=== PATIENT | male | born 1950 | race Caucasian/White ===

== ENCOUNTER 2018-07-11 11:02 | Inpatient (IN) | payer OTHER, MEDICARE ==
[~2018-07-11] VITALS: Ht 175.3 cm; Wt 90.7 kg
[2018-07-11 11:04] VITALS: BP 100/66
[2018-07-11 11:34] LABS: HEMATOCRIT 40.7 % (42.0-52.0); HEMOGLOBIN 13.6 gm/dL (14.0-18.0); MCH 30.8 pg (26.0-34.0); MCHC 33.5 g/dL (28.0-37.0); MCV 92.1 fL (80.0-100.0); PLATELET COUNT 124 thou/uL (150-400); RBC 4.41 mil/uL (4.50-6.00)
[2018-07-11 11:43] LABS: ANION GAP 10 mmol/L (7-16); BUN 8 mg/dL (7-18); CALCIUM 8.8 mg/dL (8.5-10.1); CHLORIDE 109 mmol/L (98-107); CO2 26 mmol/L (21-32); CREATININE 1.1 mg/dL (0.7-1.3); GLUCOSE 109 mg/dL (74-106); SODIUM 145 mmol/L (136-145)
[2018-07-11 11:52] LABS: ALBUMIN 2.6 g/dL (3.4-5.0); SGOT 19 U/L (15-37); SGPT 17 U/L (30-65); TOTAL BILIRUBIN 0.6 mg/dL (<0.1-1.0); TOTAL PROTEIN 6.1 g/dL (6.4-8.2); TROPONIN-I <0.06 ng/mL (<0.06)
[2018-07-11 12:19] LABS: URINE BILIRUBIN NEGATIVE (Negative); URINE BLOOD NEGATIVE (Negative); URINE CLARITY CLEAR; URINE COLOR YELLOW; URINE GLUCOSE-RANDOM* NEGATIVE (Negative); URINE KETONES NEGATIVE (Negative); URINE LEUKOCYTES-REFLEX NEGATIVE (Negative); URINE NITRITE-REFLEX NEGATIVE (Negative); URINE PROTEIN (DIPSTICK) NEGATIVE (Negative)
[2018-07-11 12:20] LABS: ABSOLUTE NEUTROPHILS 4.3 thou/uL (1.4-8.2); ANISOCYTOSIS 1+; MYELOCYTES 1 %
[2018-07-11 12:22] LABS: AMP/METHAMP Negative (Negative); BARBITURATES Negative (Negative); BENZODIAZEPINES POSITIVE (Negative); COCAINE Negative (Negative); METHADONE Negative (Negative); OPIATES Negative (Negative); PCP Negative (Negative)
[2018-07-11 14:30] VITALS: BP 124/69
[2018-07-11] MEDS ORDERED: ATIVAN0.5 MG PO (15:15)
[2018-07-11] MEDS ORDERED: CELEXA40 MG PO (15:16)
[2018-07-11] MEDS ORDERED: DIVALPROEX SOD250 M3 PO (15:16)
[2018-07-11] MEDS ORDERED: IMODIUM A-D2 MG PO (15:17)
[2018-07-11] MEDS ORDERED: NAMENDA 10 MG T10 MG PO (15:17)
[2018-07-11] MEDS ORDERED: RISPERDAL0.5 MG PO (15:18)
[2018-07-11] MEDS ORDERED: RIVASTIGMINE1 EAC1 TRANSDERM (15:19)
[2018-07-11 16:37] VITALS: BP 139/78
--- NOTE | 2018-07-11 17:18 | EKG ---
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 : 1950 Requested By: Hilary Deleon Order Number: [id number] MD: Ankit Hernandes Measurements Intervals [place] Rate: 78 P: 70 PA: 124 QRS: 22 QRSD: 99 T: 94 QT: 405 QTc: 462 Interpretive Statements Sinus rhythm Nonspecific ST and T wave abnormality No previous ECG available for comparison Electronically Signed On 07-11-2018 17:18:27 CDT by Ankit Hernandes [email or web address] ��������������������������������������������� <ELECTRONICALLY SIGNED> ���������������������������������������� By: Ankit Hernandes MD, [facility] ��������������������������������������������� 07/11/18 1718 D: 03/1226 26 Ankit Hernandes MD, FACC /EPI
--- NOTE | 2018-07-11 17:20 | EKG ---
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 CALLOWAY : 1950 Requested By: Jabier Bland Order Number: [id number] MD: Ankit Hernandes Measurements Intervals [place] Rate: 123 P: 48 MI: 112 QRS: 20 QRSD: 101 T: 64 QT: 330 QTc: 472 Interpretive Statements Sinus tachycardia Low voltage, precordial leads Nonspecific ST segment abnormality No previous ECG available for comparison Electronically Signed On 07-11-2018 17:20:18 CDT by Ankit Hernandes [email or web address] ��������������������������������������������� <ELECTRONICALLY SIGNED> ���������������������������������������� By: Ankit Hernandes MD, [facility] ��������������������������������������������� 07/11/18 1720 49 49 Ankit Hernandes MD, FAC /EPI
--- NOTE | 2018-07-11 18:05 | NUR ---
1430: Admitted to room 519-B via w/c from [facility], alert, oriented to name only, impulsive with actions and decisions. Admission assessment completed, VS= 97.3-90-20, 139/78, O2SAT 96% on R/A, lung walter CTA bilat., no cough noted, abd round/soft, BS active x4 quads, incont. of B&B, wears pull-up, BSC provided. Pt. uncooperative with staff.
[2018-07-11 19:57] VITALS: BP 126/81
--- NOTE | 2018-07-11 22:11 | NUR ---
ASSUMED CARE OF THE PT AT 1915PM. ALERT ET CONFUSED AT THIS TIME. ATTEMPTING TO GET OUT OF BED FREQUENTLY, VERY IMPULSIVE. NEEDS ASSISTANCE WHEN GOING TO THE BSC. TOOK HIS HS MEDICATIONS WITHOUT ANY DIFFICULTY. CALLED THE SINGLE CORNER CUTTER FRENCH TUTOR, WHO ORDERED A 1;1 FOR THE PT, FOR HIS SAFETY, HE IS SO IMPULSIVE.
--- NOTE | 2018-07-11 23:39 | NUR ---
THE PT HAS BEEN CALLING STAFF, "BITCHES." SCREAMING AT STAFF, "LEAVE ME ALONE." REMAINS ON 1:1 FOR HIS SAFETY.
--- NOTE | 2018-07-12 02:45 | NUR ---
THE PT HAS NOT BEEN SLEEPING THIS SHIFT. RESP., EVEN, AND UNLABORED. REMAINS ON A 1;1 FOR HIS SAFETY.
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
--- NOTE | 2018-07-12 15:42 | NUR ---
PATIENT REMAINED ON 1:1 FOR SAFETY AND AGITATION. SLEPT ALL MORNING AFTER SHIFT CHANGE. NURSE PRACTIONER VISITED WITH PATIENT CLOSE TO 1300. AT THIS TIME HE WAS AWOKEN AND ESCORTED TO DINING AREA FOR LUNCH. PATIENT SLEPT THROUGH BREAKFAST AND UNABLE TO AROUSE FOR MORNING MEDICATIONS. ONCE HE AWOKE HE WAS CALM, RESPONSIVE TO QUESTIONS, REDIRECTABLE AND COMPLIANT WITH MEDICATIONS DISPENSED WITH LUNCH. PATIENT COOPERATIVE AND AGREEABLE. AFFECT FLAT AND MOOD SERIOUS. BRUISING ON RIGHT WRIST NOTED. PATIENT STATED HAPPENED PRIOR TO ADMISSION TO [place]. HE SHOWN NO AGITATION OR RESISTANCE SINCE AWAKENING.
[2018-07-12 18:16] VITALS: BP 131/87
[2018-07-12 20:00] VITALS: BP 133/92
--- NOTE | 2018-07-13 03:39 | NUR ---
NOTED TO PACING, RESTLESS AND INCREASINGLY DIFFICULT TO REDIRECT AT SHIFT CHANGE (APPROX 1914)-PER REPORT OF 1;1 STAFF THAT HAD BEEN WITH HIM SINCE THIS AM-HALDOL 5MG PO OFFERED -TRISTEN REFUSED STATING "I DON'T LIKE TO TAKE PILLS" DID AGREE TO TAKE SHOT AND HALDOL 5MG GIVEN IM IN RIGHT DELTOID AT 1930-COOPERATIVE WITH THIS-AND WENT TO ROOM APPROX 20 MINUTES LATER-UP ON SIDE OF BED WITH 1;1 STAFF AT BEDSIDE UNTIL APPROX 2229 WHEN HE APPEARED TO FALL ASLEEP- LABILE MOOD- INITALLY WAS PLEASANT-MILDLY FLIRTATIOUS WHEN VS TAKEN-BUT LATER WHEN APPROACHED FOR ASSESSMENTS WAS ARGUMENTATIVE,USING PROFANITY AND INSULTING TO STAFF. DENIES A/V HALLUCINTATIONS-APPEARS HYPERVIGILANT AND GUARDED IN MILLEU BUT NO DELUSIONAL/PARANOID THOUGHTS VERBALIZED IN CONVERSATION 9
--- NOTE | 2018-07-13 05:52 | NUR ---
NO BOWEL MOVEMENTS THIS SHIFT 7A-7PM. DENIES ABDOMINAL PAIN/CRAMPING OR DISCOMFORT-GOOD APPETITE-TAKE PO FLUIDS WELL-VS 133/92-P-96 R-16 AFEBRILE TEMP 98.4
[2018-07-13 07:30] VITALS: BP 120/74
--- NOTE | 2018-07-13 09:09 | NUR ---
0730: Care assumed, report rec from noc shift. Assist with a.m. care x1 staff, pt cooperative with staff. Ambulatory to DR for a.m. meal, gait steady, follows direction, feeds self, appetite good, consumed 100% of brk. Takes meds whole w/o difficulty. No stools reported at this time.
--- NOTE | 2018-07-13 11:47 | EKG ---
[address] [address] ELECTROCARDIOGRAM REPORT Name: TRISTEN BRADY Room #: 519B-B ADM IN M.R.#: [id number] ������������������ Admission: 07/11/18 ������������������ Attend Phys: Jabier Bland DO Discharge: ������������������ Date of : 52 Report #: [id number] ����������������������������������������������������������������� [id number] THIS REPORT FOR: //name// [facility] Test Date: 2018-07-12 Test Time: 14:06:22 Pat Name: TRISTEN BRADY Department: Room: 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 Aide Teacher: CHERYL : 1950 Requested By: Alejandra Colon Order Number: [id number] MD: Ankit Hernandes Measurements Intervals [place] Rate: 92 P: 67 NJ: 113 QRS: 14 QRSD: 95 T: 84 QT: 345 QTc: 427 Interpretive Statements Sinus arrhythmia Borderline short [place] interval Low voltage, precordial leads Borderline repolarization abnormality Compared to ECG 07/11/2018 16:50:17 Sinus tachycardia no longer present Electronically Signed On 07-13-2018 11:47:22 CDT by Ankit Hernandes [email or web address] ��������������������������������������������� <ELECTRONICALLY SIGNED> ���������������������������������������� By: Ankit Hernandes MD, [facility] ��������������������������������������������� 07/13/18 1147 1406 1406 Ankit Hernandes MD, [facility] /EPI
[2018-07-13 20:00] VITALS: BP 155/90
--- NOTE | 2018-07-13 23:25 | NUR ---
ASSUMED CARE OF THE PT AT 1915PM. THE PT HAS BEEN WALKING UP AND DOWN THE HALLWAY THIS PM. ALERT TO PERSON. DENIES ANXIETY, DEPRESSION, SI/HI, A/V HALLUCINATIONS. WALKS WITH A SLOW STEADY GAIT. REMAINS ON 12 HOUR CHECKS FOR HIS SAFETY.
--- NOTE | 2018-07-14 01:38 | NUR ---
LATE ENTRY FOR 07-13-18 [id number] POSITIVE RESULTS CALLED TO CLINICIAN LITIGATOR RJEI BOWLES UNDERWATER TRAPPER AT 1930 BY PREVIOUS SHIFT RN Asia AL-ORDERS RECEIVED TO PLACE PT ON CONTACT PRECAUTIONS AND ISOLATION CART ORDER PLACED-NURSING DISTRIBUTION OPERATIONS SUPERVISOR NOTIFIED. MONIAK RAMSAY UNDERWATER TRAPPER CONTACTED WITH POSITIVE C-DIFF RESULTS AT APPROX. 2200 AND INDICATED SHE WOULD PLACE ORDERS FOR MEDS FOR TREATMENT- EXPRESSED CONCERN RE ABILITY TO MANAGE C-DIFF PT ON UNIT AND INDICATED POSSIBLE TRANSFER TO MEDICAL SURGICAL FLOOR-STATED SHE WOULD CONTACT DR. GARCIA TO DISCUSS THIS OPTION. APPROX 45INUTES THIS RN RECEIVED CALL FROM Summer RAMSAY NP INDICATING SHE WAS UNABLE TO REACH DR. GARCIA AND SPOKE WITH James BOWLES NP WHO WAS COVERING UNIT THIS WEEKEND AND PT WOULD NOT BE TRANSFERED AT THIS TIME. ABILITY TO MAINTAIN CONTACT PRECAUTIONS ON UNIT
--- NOTE | 2018-07-14 04:29 | NUR ---
THE PT HAS BEEN SLEEPING FOR THE LAST FEW HOURS, TOOK HIS MIDNIGHT DOSE OF VANCOMYCIN WITHOUT ANY DIFFICULTY. WILL CONTINUE TO MONITOR.
--- NOTE | 2018-07-14 04:58 | NUR ---
THE PT SLEPT 5.2 HOURS LAST NIGHT.
--- NOTE | 2018-07-14 10:01 | NUR ---
[id number]: Report rec. from [facility] shift, care assumed. Remains on contact isolation for C-Diff, caution sign present before entry into room, isolation cart present on unit with education provided to staff regarding isolation. Up in room with assist of 1 staff, gait fairly steady, walker present for assist. Ambulatory to DR for a.m. meal, consumed 100% of meal, takes meds w/o difficulty. Mood happy, calm, cooperative with staff and other pts. Participates in group activity in common area.
[2018-07-14 19:30] VITALS: BP 140/86
[2018-07-15 01:46] VITALS: BP 140/86
[2018-07-15 04:05] LABS: CALCIUM 8.5 mg/dL (8.5-10.1); MAGNESIUM 1.7 mg/dL (1.8-2.4); POTASSIUM 3.2 mmol/L (3.5-5.1)
--- NOTE | 2018-07-15 04:07 | NUR ---
RESTLESS AND IRRITABLE EARLY IN SHIFT. UNABLE TO SIT STILL. TOOK HS MEDS WITH ASSISTANCE. UNSTEADY AMBULATION, AND REQUIRES ASSIST. RESTLESS IN BED, AND ATTEMPTING TO CLIMB OVER BED RAILS. UNABLE TO PROCESS AND REMEMBER REDIRECTION FROM STAFF. ROBINAO AT MIDNIGHT PER ORDER. FINALLY SETTLED ABOUT 0130. SLEPT WELL FROM THEN.
[2018-07-15 04:45] LABS: HEMATOCRIT 40.9 % (42.0-52.0); HEMOGLOBIN 13.8 gm/dL (14.0-18.0); MCHC 33.9 g/dL (28.0-37.0); MCV 91.6 fL (80.0-100.0); PLATELET COUNT 121 thou/uL (150-400); RBC 4.46 mil/uL (4.50-6.00); RDW 14.8 % (10.5-14.5); WBC 8.2 thou/uL (4.0-11.0)
[2018-07-15 06:07] LABS: ABSOLUTE NEUTROPHILS 4.9 thou/uL (1.4-8.2)
[2018-07-15 06:08] LABS: PLATELET ESTIMATE DECREASED
--- NOTE | 2018-07-15 11:28 | NUR ---
ASSUMED CARE AT 0715 THIS MORNING. PT. UP FOR MEALS, GROUPS. PT. CONTINUES TO BE CONFUSED. PT. AMBULATING IN THE HALLWAY AT 1100 THIS MORNING. HE FELL NEAR THE DOOR. HIS B/P WAS 156/101 AFTER FALL WITH PULSE OF 86. HE DENIED ACHES OR PAINS. NO APPARENT PROBLEMS NOTED. HIS , LAVON NOTIFIED. NURSE LEGAL COMPLIANCE OFFICER, FREDDIE CHERRY NOTIFIED. DR. GARCIA ALSO NOTIFIED.
[2018-07-15 14:02] VITALS: BP 140/78
[2018-07-15 16:09] VITALS: BP 140/78
--- NOTE | 2018-07-15 16:51 | NUR ---
SW was at the nurse station when there was a "big bang". SW looked on the camera in notice that pt has fell. SW came to assist the nurse with observing the pt skin to see if there was any bruises. Anastasiya the nurse completed lisa; signs, and assist the pt to a chair. Pt stated that he was fine, and he wanted to go home. SW notified the pt concerning the incident. There was no other service need concerning social service.
[2018-07-15 19:45] VITALS: BP 152/98
--- NOTE | 2018-07-15 22:41 | NUR ---
ASSUMED CARE OF THE PT AT 1915PM. THE PT HAS BEEN UP TO THE DINING ROOM, WALKING BACK AND FORTH ACROSS THE HALLWAY TO HIS ROOM AND BACK TO THE DINING ROOM. INCONT. X 1 OF URINE. TOOK HIS MEDICATIONS WITHOUT ANY DIFFICULTY. DENIES PAIN AT THIS TIME. REMAINS ON 12 MINUTE CHECKS FOR HIS SAFETY.
--- NOTE | 2018-07-16 04:07 | NUR ---
THE PT WAS RESTLESS EARLIER IN THE EVENING, WALKING BACK AND FORTH FROM THE DINING ROOM TO HIS BEDROOM. HE WOULD NOT WALK WITH HIS WALKER, THEN HE WOULD USE HIS WALKER. WENT INTO OTHER PT'S ROOMS, VERY RESTLESS. TOOK HIS HS MEDICATIONS WITHOUT ANY DIFFICULTY. WAS INCONT X 1, EARLIER IN THE SHIFT. HE FINALLY WENT TO BED AT 1030 PM. UNABLE TO GIVEN VANCOMYCIN DOSE TO PT HE APPEARED TO BE ASLEEP.
--- NOTE | 2018-07-16 05:45 | NUR ---
THE PT SLEPT 7 HOURS LAST NIGHT.
--- NOTE | 2018-07-16 09:21 | NUR ---
ASSUMED PATIENT CARE AT 0700. REHAB AIDE AND NURSE ATTEMPTED TO GET PATIENT UP AND DRESSED FOR BREAKFAST. UNSUCCESSFUL IN BOTH ATTEMPTS. TOO SEDATED TO WAKE UP AND TAKE A.M. MEDICATIONS. CONTINUE TO MONITOR.
[2018-07-16 13:50] VITALS: BP 110/73
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
--- NOTE | 2018-07-16 16:54 | NUR ---
AT 1645, PATIENT WAS WALKING QUICKLY PAST THE NURSE'S STATION TOWARDS HIS ROOM. HE WAS WALKING TOO FAST AND LOST HIS BALANCE, FELL ON HIS BUTTOCKS IN SITTING POSITION. DENIED PAIN, VSS, WALKED TO HIS ROOM WITH STANDBY ASSISTANCE. BEING ASSISTED BY TWO STAFF TO AT THIS TIME FOR DINNER.
[2018-07-16 16:58] VITALS: BP 110/73
[2018-07-16 19:47] VITALS: BP 141/84
--- NOTE | 2018-07-16 22:12 | NUR ---
ASSUMED CARE OF THE PT AT 1914 PM. ALERT TO PERSON ONLY. WALKS WITH AN UNSTEADY GAIT, USES A WALKER AT TIMES. DENIES PAIN AT THE PRESENT TIME. VERY CONFUSED THIS PM. DENIES A/V HALLUNICATIONS. DENIES ANXIETY, DEPRESSION. REMAINS ON 12 MINUTE CHECKS FOR HIS SAFETY.
--- NOTE | 2018-07-17 03:59 | NUR ---
THE PT HAS BEEN SLEEPING MOST OF THE NOC SHIFT. RESP. EVEN, AND UNLABORED.
--- NOTE | 2018-07-17 05:57 | NUR ---
THE PT SLEPT 8.6 HOURS LAST NIGHT.
--- NOTE | 2018-07-17 14:12 | NUR ---
PATIENT HAS BEEN CALM AND REDIRECTABLE. MANUVERS AROUND UNIT BUT UNSTEADILY - STAFF HAS HAD TO REMIND HIM TO USE WALKER NUMEROUS TIMES. PATIENT HAS HAD BOWEL MOVEMENT - FECES ON FLOOR IN HIS ROOM EARLIER - STAFF ASSISTED AND SHOWERED PATIENT - CONFUSED - NEEDS MONITORING - HIGH FALL RISK DUE TO INABILITY TO STAY STILL. TIRES EASILY AND NEEDS TO SIT FREQUENTLY AFTER AMBULATION. PATIENT HAS GOOD APPETITE - COMPLIANT WITH MEDICATIONS.
--- NOTE | 2018-07-17 15:59 | NUR ---
GAIL spoke with deni Fernández from [facility], and pt was accepted into the facility. Pt will be discharge on July 18, 2018. GAIL notified the pt Clau, and she stated that she fine with him going into the facility for memory care. GAIL will follow-up with the pt upon discharge.
--- NOTE | 2018-07-18 02:56 | NUR ---
PATIENT ALERT MX 2. REMAINS CONFUSED TO PLACE AND TIME. TAKING DIET WELL. 1 :1 AT BED SIDE. SLEEPING OFF AND ON ALL NIGHT. NO PEROIDS OF COMBATIVNESS. HAS C-DIFF. TAKING ORAL ANTIBIOTIC FOR THIS. WILL BE DC IN AM. IS A FALL RISK. LUNGS CTA. NO EDEMA NOTED. VOIDS PER URINAL ON ROOM AIR. HAD 1 STOOL TODAY.NO SUICIDAL OR HOMOCIDAL IDEATION NOTED THIS SHIFT. REMAINS A NO CODE. REMAINS UP AD AYDEE DURING THE DAY. BED ALARM ON.HAS ALOT OF DEMENTIA NOTED. CONT PLAN OF CARE.
--- NOTE | 2018-07-18 03:49 | NUR ---
PATIENT REMAINS ON 1:1. AND IS IN ISOLATION FOR C-DIFF.
--- NOTE | 2018-07-18 04:43 | NUR ---
PATIENT WAS INCONTINENT OF URINE ALL NIGHT. HAS RED SPOTS IN GROIN AREA, AND UNDER PENIS. AREA CLEANED AND CREAM APPLIED.
--- NOTE | 2018-07-18 04:56 | NUR ---
PATIENT HAS A HARSH COUGH NOTED THIS AM. IT IS NONPRODUCTIVE.
[2018-07-18 05:54] LABS: CALCIUM 8.3 mg/dL (8.5-10.1); CREATININE 1.1 mg/dL (0.7-1.3); MAGNESIUM 1.9 mg/dL (1.8-2.4); POTASSIUM 3.3 mmol/L (3.5-5.1)
[2018-07-18] MEDS ORDERED: FIRVANQ50 MG/1 ML PO (09:00)
[2018-07-18] MEDS ORDERED: DEPAKOTE 250MG250 M1 PO (09:01)
[2018-07-18] MEDS ORDERED: DEPAKOTE125 MG PO (09:01)
[2018-07-18] MEDS ORDERED: ZYPREXA 5 MG TAB5 M1 PO ×2 (09:02)
[2018-07-18] MEDS ORDERED: TRAZODONE HCL50 MG PO (09:02)
[2018-07-18] MEDS ORDERED: NAMENDA 5 MG TAB5 M1 PO (09:03)
[2018-07-18] MEDS ORDERED: MILK OF MA2400 MG/11 PO (09:03)
--- NOTE | 2018-07-18 10:26 | NUR ---
Patient Name: TRISTEN BRADY Admission Date: 07/11/18 DISCHARGE PLAN: Pt will be discharge to [facility] for memory care. Care Assessment: Pt was assessed by Dr. Bland, and was diagnosed with Major Neurocognitive Disorder. Dr. bland recommended a memory care setting. Level II Assessment: None Transportation: Pt will be transported by [facility] Special Instructions/Notes: Pt will need to be in a memory care setting due to his severe Dementia. DISCHARGE TO FACILITY: Memory care Facility: [facility] Fax: Address: [address] [place] [id number] Contact Name: Alejandra Fernández PCP: [place] Psychiatrist: [facility]
--- NOTE | 2018-07-18 10:29 | NUR ---
PATIENT DISCHARGED AT 1000 AM, ORDERS RADHA LUCERO, TO [facility]. ALL BELONGINGS SENT WITH PATIENT; DISCHARGE PAPERS SENT WITH [facility] P[facility]. REPORT BEING ATTEMPTED AT THIS; HOWEVER, NURSE IS WAITING ON [facility] PERSONNEL TO REPORT TO. WILL CALL BACK UNTIL REPORT IS GIVEN.
--- NOTE | 2018-07-18 11:30 | NUR ---
PATIENT ALREADY DISCHARGED PRIOR TO NEW ORDER FOR POTASSIUM BEING ENTER INTO COMPUTER.
--- NOTE | 2018-07-21 21:38 | D ---
[facility] [place] [address] DISCHARGE SUMMARY Name: TRISTEN BRADY Room #: 519B-B DIS IN M.R.#: [id number] Admission: 07/11/18 ������������������ Attend Phys: Jabier Bland DO Discharge: 07/18/18 ������������������ Date of : 52 Report #: [id number] THIS REPORT FOR: //name// CC: Jabier Law DATE OF SERVICE: 07/18/2018 INPATIENT PSYCHIATRIC DISCHARGE SUMMARY ATTENDING PHYSICIAN: Jabier Bland DO. POT LINER AT THE TIME OF DISCHARGE: Aleja Figueroa APRN. 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 Comorbidities include Clostridium difficile colitis, treated with vancomycin, he is currently on day #5, will need 20 more doses, had a bowel movement today, but it is not of diarrheal nature. Hypokalemia, hypomagnesemia, replaced. DISCHARGE MEDICATIONS: Are as follows: Vancomycin 125 mg p.o. 4 times a day, 20 more doses needed; Depakote ER 875 mg p.o. twice per day for mood stabilization, trazodone 50 mg p.o. at bedtime p.r.n. for sleep at 12:30, olanzapine 5 mg in the morning at 9:00 a.m. and 10 mg with dinner, memantine 10 mg p.o. b.i.d., magnesium hydroxide 10 mL p.o. at bedtime p.r.n. constipation. DISCHARGE DIET: Regular. ACTIVITY LEVEL: As tolerated. DISCHARGE INSTRUCTIONS: The patient will need 05/11 supervision in memory care, I believe he is discharging to home instead of facility. LABORATORY DATA: Last CBC on 07/15/2018, H and H 13.9 and 40.9, white count 9.2 and platelets 121,000. Chemistries most recently done on 07/18/2018, I am thinking that these were ordered by accident, I did not order them, but the hospitalist did, sodium 143, potassium 3.3, chloride 108, bicarbonate 28, creatinine 1.1, estimated GFR 67, glucose 90, calcium 8.3, magnesium 1.9, which has normalized and his potassium really is materially depleted. UDS was negative on admission. Toxicology, negative drug screen except benzodiazepines. Depakote level was 63, the 875 b.i.d. is increase from his baseline of 750 b.i.d. Alcohol less than 10. Serology, C. difficile as stated was positive. REASON FOR ADMISSION: Behavioral dyscontrol in the nursing facility. HOSPITAL COURSE: The patient was admitted to [facility], [address] [address] DISCHARGE SUMMARY Name: TRISTEN BRADY Benji Room #: 519B-B DIS IN M.R.#: [id number] Admission: 07/11/18 ������������������ Attend Phys: Jabier Bland DO Discharge: 07/18/18 ������������������ Date of : 52 Report #: [id number] believe he was on a low dose of Depakote, actually was on 750 b.i.d. and I did the next blood level the next day, it came back 63, so I went ahead and increased 250 mg total a day. I have not done a repeat blood level, that certainly can be done at nursing facility. The patient was a challenge in terms of keeping contact isolation. He was participative in some groups, but clearly, he had prominent tactile hallucinations and grossly disorganized. He spoke with his , Clau during admission. She agreed goals of comfort, dignity and safety. PHYSICAL EXAMINATION: VITAL SIGNS: On the day of discharge, temperature 36.5, pulse rate 99, respirations 16, BP 141/84, O2 sat 91% on room air. MUSCULOSKELETAL: Ambulatory with walker. MENTAL STATUS EXAMINATION: This is a well-developed, disheveled male appearing older than stated age. Attention impaired. Concentration impaired. Speech sporadic, usually slightly slow. No psychomotor agitation or psychomotor retardation. Mood and affect were congruent, constricted. The patient denied, but a poor historian. Insight limited. Judgment limited. Fund of knowledge below average. Prognosis for this patient is poor given his age of 68 and advancing frontotemporal dementia. His nursing facility will be providing primary psychiatric care. ��������������������������������������������� <ELECTRONICALLY SIGNED> ���������������������������������������� By: Jabier Bland DO ��������������������������������������������� 07/21/18 [id number] Jabier Bland DO /nt
== END 2018-07-18 09:55 | DRG 884 ==
LOC: ER 11:02 → SBH 14:44
PROVIDERS: Nurse Practitioner; Student in an Organized Health Care Education/Training Program; ADMIT Psychiatry & Neurology Psychiatry
DX: F01.51 Vascular dementia, unspecified severity, with behavioral disturbance (principal); A04.72 Enterocolitis due to Clostridium difficile, not specified as recurrent; E87.6 Hypokalemia; E83.42 Hypomagnesemia; R41.0 Disorientation, unspecified; Z79.899 Other long term (current) drug therapy
CPT/HCPCS: 10880